=== PATIENT | male | born 1970 | race African-American/Black ===

== ENCOUNTER 2023-04-22 18:17 | Inpatient (IN) | payer OTHER, MEDICAID ==
[~2023-04-22] VITALS: Ht 180.3 cm; Wt 117.5 kg
[2023-04-22 18:55] VITALS: PULSE 80; RESP 16; O2SAT 95
[2023-04-22 19:18] LABS: Basophils # (auto) 0.1 10 ^3/uL (0-0.2); Basophils % (auto) 0.4 % (0.0-2.0); Eosinophils # (auto) 0.1 10 ^3/uL (0-0.8); Eosinophils % (auto) 0.4 % (0.0-7.0); Hematocrit 50.6 % (41.0-53.0); Lymphocytes # (auto) 3.6 10 ^3/uL (0.4-5.4); Lymphocytes % (auto) 24.4 % (10.0-50.0); Mean Corpuscular Hemoglobin 30.4 pg (28.0-32.0); Mean Corpuscular Hgb Conc. 33.6 g/dL (32.0-36.0); Mean Corpuscular Volume 90.6 fL (80.0-100.0); Monocytes # (auto) 1.4 10 ^3/uL (0-1.3); Monocytes % (auto) 9.8 % (0.0-12.0); Neutrophils # (auto) 9.6 10 ^3/uL (1.6-8.6); Nucleated Red Blood Cells % 0.1 %; Red Blood Cells 5.59 10^6/uL (4.5-5.90); Red Cell Distribution Width 15.1 % (11.8-14.3); White Blood Cell 14.7 10^3/uL (4.4-10.8)
[2023-04-22 19:20] LABS: Alanine Aminotransferase 109 U/L (7-40); Albumin 4.7 g/dL (3.2-4.8); Alkaline Phosphatase 109 U/L (46-116); Anion Gap 8 (5-15); Aspartate Aminotransferase 41 U/L (13-40); Blood Urea Nitrogen 16 mg/dL (9-23); Calcium 9.6 mg/dL (8.7-10.4); Carbon Dioxide 26 mmol/L (20-30); Chloride 105 mmol/L (98-107); Glucose 91 mg/dL (74-106); Magnesium 2.2 mg/dL (1.6-2.6); Potassium 3.9 mmol/L (3.5-5.1); Sodium 139 mmol/L (136-145)
[2023-04-22 19:21] LABS: Bilirubin, Total 0.7 mg/dL (0.2-1.0); Total Protein 7.7 g/dL (5.7-8.2)
[2023-04-22 19:30] LABS: INR 1.06 (0.9-1.15); Partial Thromboplastin Time 28.1 SEC (24.5-34.5); Prothrombin Time 11.1 sec (9.3-11.8)
[2023-04-22 19:41] VITALS: PULSE 81; RESP 14; O2SAT 96
[2023-04-22] MEDS ORDERED: NITROGLYCERIN 0.4 MG SL TAB SL ONE (20:00)
[2023-04-22] MEDS ORDERED: DOCUSATE SOD 100 MG CAP PO PRN (21:00)
[2023-04-22] MEDS ORDERED: ACETAMINOPHEN 325 MG TAB PO PRN (21:00)
[2023-04-22] MEDS ORDERED: ALBUTEROL MEDNEB 2.5 mg/3ml NEB NEB PRN (21:00)
[2023-04-22] MEDS: FUROSEMIDE 100 MG/10ML VIAL IV ONE ×2 (21:00→22:31)
[2023-04-22] MEDS ORDERED: ONDANSETRON HCL 4 MG/2 ML VIAL IV PRN (21:00)
[2023-04-22] MEDS ORDERED: HYDROcodone-ACET 5/325MG TAB PO PRN (21:00)
[2023-04-22] MEDS ORDERED: MORPHINE SULFATE INJ 2 MG/ml SYRG IV PRN ×2 (21:00)
[2023-04-22] MEDS ORDERED: NITROGLYCERIN 0.4 MG SL TAB SL PRN (21:00)
[2023-04-22] MEDS ORDERED: cefTRIAXone 1GM/50ML D5W 50 ML IV ONE (21:00)
[2023-04-22] MEDS ORDERED: IPRATROPIUM BROM 0.5 MG/2.5ML INH SOL NEB PRN (21:00)
[2023-04-22 21:32] VITALS: BP 133/88; PULSE 81; RESP 20; O2SAT 97
[2023-04-22 22:20] LABS: Urine Bacteria NONE SEEN /hpf (None Seen); Urine Blood Negative /uL (Negative); Urine Clarity Clear (Clear); Urine Color Colorless (Yellow); Urine Protein, UAD Negative (Negative); Urine Specific Gravity 1.009 (1.001-1.035); Urine Sperm PRESENT /hpf (None Seen); Urine Urobilinogen Normal (Negative); Urine WBC 1 /hpf (0 - 3); Urine pH 5.5 (5.0-8.0)
[2023-04-22] MEDS: CARVEDILOL 3.125 MG TAB PO SCH (22:29)
[2023-04-22 22:30] LABS: Amphetamine Screen, Urine Neg (NEGATIVE)
[2023-04-22] MEDS: ATORVASTATIN 20 MG TAB PO SCH (22:30)
[2023-04-22 22:31] LABS: Barbiturate Scree,Urine Neg (NEGATIVE); Benzodiazephine Screen, Urine Neg (NEGATIVE); Cannabinoid Screen, Urine Pos (NEGATIVE); Cocaine Screen, Urine Neg (NEGATIVE); Opiate Scree,Urine Neg (NEGATIVE); Phencyclidine Screen, Urine Neg (NEGATIVE)
[2023-04-23] VITALS (7 sets, daily range): BP systolic 104–122; BP diastolic 66–82; PULSE 69–87; RESP 18–20; TEMP 97.6–98.9; O2SAT 93–97
[2023-04-23 05:56] LABS: Alanine Aminotransferase 106 U/L (7-40); Alkaline Phosphatase 92 U/L (46-116); Calcium 8.9 mg/dL (8.5-10.1); Carbon Dioxide 26 mmol/L (20-30); Chloride 106 mmol/L (98-107); Glucose 110 mg/dL (74-106); LDL Cholesterol 221 mg/dL (< 100); Potassium 3.6 mmol/L (3.5-5.1); Triglycerides 133 mg/dL (< 150)
[2023-04-23 05:57] LABS: Albumin 4.5 g/dL (3.2-4.8); Anion Gap 8 (5-15); Aspartate Aminotransferase 55 U/L (13-40); BUN/Creatinine Ratio 9.9 (10.0-20.0); Bilirubin, Total 0.8 mg/dL (0.2-1.0); Blood Urea Nitrogen 14 mg/dL (9-23); Cholesterol 266 mg/dL (< 200); HDL Cholesterol 37 mg/dL (40-59); Sodium 140 mmol/L (136-145); Total Protein 7.5 g/dL (5.7-8.2)
[2023-04-23] MEDS ORDERED: FUROSEMIDE 20 MG/2 ML VIAL IV SCH (06:00)
[2023-04-23 06:06] LABS: Basophils # (auto) 0.1 10 ^3/uL (0-0.2); Basophils % (auto) 0.5 % (0.0-2.0); Eosinophils # (auto) 0.1 10 ^3/uL (0-0.8); Eosinophils % (auto) 0.8 % (0.0-7.0); Hematocrit 48.1 % (41.0-53.0); Hemoglobin 16.4 g/dL (13.5-17.5); Lymphocytes # (auto) 1.8 10 ^3/uL (0.4-5.4); Lymphocytes % (auto) 17.8 % (10.0-50.0); Mean Corpuscular Hemoglobin 30.5 pg (28.0-32.0); Mean Corpuscular Hgb Conc. 34.1 g/dL (32.0-36.0); Mean Corpuscular Volume 89.4 fL (80.0-100.0); Monocytes # (auto) 1.1 10 ^3/uL (0-1.3); Monocytes % (auto) 10.5 % (0.0-12.0); Neutrophils # (auto) 7.1 10 ^3/uL (1.6-8.6); Neutrophils % (auto) 70.4 % (37.0-80.0); Nucleated Red Blood Cells % 0.1 %; Red Blood Cells 5.37 10^6/uL (4.5-5.90); Red Cell Distribution Width 14.4 % (11.8-14.3); White Blood Cell 10.1 10^3/uL (4.4-10.8)
[2023-04-23] MEDS ORDERED: METO25TA93 PO (06:19)
[2023-04-23] MEDS ORDERED: AMIO200T33 PO (06:19)
[2023-04-23] MEDS ORDERED: CLOP75TA70 PO (06:19)
[2023-04-23] MEDS ORDERED: ATOR80TA PO (06:21)
[2023-04-23] MEDS ORDERED: ASPI325T4 PO (06:21)
[2023-04-23] MEDS ORDERED: CARV6.2551 PO (06:21)
[2023-04-23] MEDS ORDERED: FURO40TA4 PO (06:21)
[2023-04-23] MEDS ORDERED: METOPROLOL SUCCINATE XL 50 MG TAB PO SCH (10:00)
[2023-04-23] MEDS: cefTRIAXone 1GM/50ML D5W 50 ML IV SCH (10:07)
[2023-04-23] MEDS: ASPirin-EC 81 mg tab PO SCH (10:08)
[2023-04-23] MEDS: AMIODARONE HCL 200 MG TAB PO SCH (10:09)
[2023-04-23] MEDS: CLOPIDOGREL BISULFATE 75 MG TAB PO SCH (10:09)
[2023-04-23] MEDS: CARVEDILOL 3.125 MG TAB PO SCH ×2 (10:15→21:52)
[2023-04-23] MEDS: SPIRONOLACTONE 25 MG TAB PO SCH (10:18)
[2023-04-23] MEDS: SACUBITRIL-VALSARTAN 24mg/26mg TAB PO SCH ×2 (10:18→21:52)
[2023-04-23] MEDS: FUROSEMIDE 20 MG/2 ML VIAL IV SCH (17:26)
[2023-04-23] MEDS: ATORVASTATIN 20 MG TAB PO SCH (21:53)
[2023-04-24 05:00] VITALS: BP 113/75; PULSE 79; RESP 20; TEMP 98; O2SAT 97
[2023-04-24] MEDS: FUROSEMIDE 20 MG/2 ML VIAL IV SCH (06:00)
[2023-04-24 06:35] VITALS: O2SAT 97
[2023-04-24] MEDS ORDERED: EMPAGLIFLOZIN 10 MG TAB PO SCH (07:00)
[2023-04-24 08:00] VITALS: PULSE 77
[2023-04-24 08:21] LABS: Hepatitis B Surface Antigen Negative (Negative)
[2023-04-24 08:35] VITALS: BP 109/70; PULSE 79; RESP 18; TEMP 97.5; O2SAT 95
[2023-04-24 08:42] LABS: Hepatitis C Antibody Negative (Negative)
[2023-04-24] MEDS: SACUBITRIL-VALSARTAN 24mg/26mg TAB PO SCH (09:09)
[2023-04-24] MEDS: ASPirin-EC 81 mg tab PO SCH (09:10)
[2023-04-24] MEDS: CLOPIDOGREL BISULFATE 75 MG TAB PO SCH (09:11)
[2023-04-24] MEDS: AMIODARONE HCL 200 MG TAB PO SCH (09:11)
[2023-04-24] MEDS: CARVEDILOL 3.125 MG TAB PO SCH (09:11)
[2023-04-24] MEDS: SPIRONOLACTONE 25 MG TAB PO SCH (09:11)
[2023-04-24] MEDS: cefTRIAXone 1GM/50ML D5W 50 ML IV SCH (09:12)
[2023-04-24] MEDS ORDERED: ATO40T PO (10:24)
[2023-04-24] MEDS ORDERED: CARV6.25 PO (10:24)
[2023-04-24] MEDS ORDERED: NITR0.4S29 SL (10:24)
[2023-04-24 12:35] VITALS: BP 109/72; PULSE 80; RESP 20; TEMP 97.5; O2SAT 96
[2023-04-24 14:06] VITALS: BP 109/70; PULSE 79; TEMP 36.4
== END 2023-04-24 16:20 | disposition home or self-care (01) | DRG 280 ==
LOC: ER 18:17 → TELE 21:06 → TELE-WESTW 04-23 06:09
PROVIDERS: ADMIT Nurse Practitioner Family; ATTEND Family Medicine
DX: I21.4 Non-ST elevation (NSTEMI) myocardial infarction (principal); I50.43 Acute on chronic combined systolic (congestive) and diastolic (congestive) heart failure; I13.0 Hypertensive heart and chronic kidney disease with heart failure and stage 1 through stage 4 chronic kidney disease, or unspecified chronic kidney disease; N17.9 Acute kidney failure, unspecified; D72.829 Elevated white blood cell count, unspecified; I25.5 Ischemic cardiomyopathy; E78.5 Hyperlipidemia, unspecified; E66.9 Obesity, unspecified; R73.03 Prediabetes; N18.9 Chronic kidney disease, unspecified; F17.210 Nicotine dependence, cigarettes, uncomplicated; I25.10 Atherosclerotic heart disease of native coronary artery without angina pectoris; Z95.1 Presence of aortocoronary bypass graft; Z95.810 Presence of automatic (implantable) cardiac defibrillator; Z82.49 Family history of ischemic heart disease and other diseases of the circulatory system; Z83.3 Family history of diabetes mellitus; Z95.5 Presence of coronary angioplasty implant and graft; Z91.199 Patient's noncompliance with other medical treatment and regimen due to unspecified reason; Z68.36 Body mass index [BMI] 36.0-36.9, adult
CPT/HCPCS: 36415; 71045; 80053; 80061; 80307; 81001; 83036; 83735; 83880; 84443; 84484; 85025; 85610; 85730; 86803; 87040; 87086; 87340; 93005; 93306; 96365; 96375; G0378; J0696

== ENCOUNTER 2023-05-22 10:44 | Inpatient (IN) | payer OTHER, MEDICAID ==
[~2023-05-22] VITALS: Ht 180.3 cm; Wt 111.6 kg
[~2023-05-22 10:44] MED LIST: AMIO200T33 PO; ASPI325T4 PO; ATO40T PO; ATOR80TA PO; CARV6.25 PO; CARV6.2551 PO; CLOP75TA70 PO; FURO40TA4 PO; METO25TA93 PO; NITR0.4S29 SL
[2023-05-22 11:08] LABS: Basophils # (auto) 0.1 10 ^3/uL (0-0.2); Basophils % (auto) 0.7 % (0.0-2.0); Eosinophils # (auto) 0.1 10 ^3/uL (0-0.8); Eosinophils % (auto) 1.1 % (0.0-7.0); Hematocrit 46.1 % (41.0-53.0); Hemoglobin 15.2 g/dL (13.5-17.5); Lymphocytes # (auto) 2.4 10 ^3/uL (0.4-5.4); Lymphocytes % (auto) 23.4 % (10.0-50.0); Mean Corpuscular Hemoglobin 30.3 pg (28.0-32.0); Mean Corpuscular Volume 91.8 fL (80.0-100.0); Monocytes # (auto) 1.2 10 ^3/uL (0-1.3); Neutrophils # (auto) 6.3 10 ^3/uL (1.6-8.6); Neutrophils % (auto) 62.8 % (37.0-80.0); Nucleated Red Blood Cells % 0.1 %; Red Blood Cells 5.02 10^6/uL (4.5-5.90); Red Cell Distribution Width 15.1 % (11.8-14.3); White Blood Cell 10.1 10^3/uL (4.4-10.8)
[2023-05-22] MEDS ORDERED: FUROSEMIDE 100 MG/10ML VIAL IV ONE (11:30)
[2023-05-22 11:33] LABS: Alanine Aminotransferase 74 U/L (7-40); Alkaline Phosphatase 77 U/L (46-116); Anion Gap 7 (5-15); Aspartate Aminotransferase 24 U/L (13-40); BUN/Creatinine Ratio 16.2 (10.0-20.0); Bilirubin, Total 0.9 mg/dL (0.2-1.0); Blood Urea Nitrogen 23 mg/dL (9-23); Calcium 8.3 mg/dL (8.7-10.4); Carbon Dioxide 23 mmol/L (20-30); Chloride 108 mmol/L (98-107); Glucose 119 mg/dL (74-106); Potassium 4.3 mmol/L (3.5-5.1); Sodium 138 mmol/L (136-145); Total Protein 6.3 g/dL (5.7-8.2)
[2023-05-22] MEDS ORDERED: ASPirin 325 MG TAB PO ONE (12:00)
[2023-05-22] MEDS ORDERED: NITROGLYCERIN 0.4 MG SL TAB SL ONE (12:00)
[2023-05-22] MEDS ORDERED: DOCUSATE SOD 100 MG CAP PO PRN (14:30)
[2023-05-22] MEDS ORDERED: ONDANSETRON HCL 4 MG/2 ML VIAL IV PRN (14:30)
[2023-05-22] MEDS ORDERED: NITROGLYCERIN 0.4 MG SL TAB SL PRN (14:30)
[2023-05-22] MEDS ORDERED: ACETAMINOPHEN 325 MG TAB PO PRN (14:30)
[2023-05-22] MEDS ORDERED: HYDROcodone-ACET 5/325MG TAB PO PRN (14:30)
[2023-05-22] MEDS ORDERED: MORPHINE SULFATE INJ 2 MG/ml SYRG IV PRN (14:30)
[2023-05-22] MEDS ORDERED: ATORVASTATIN 20 MG TAB ONE ×2 (19:32→19:33)
[2023-05-22] MEDS: ATORVASTATIN 20 MG TAB PO SCH (19:34)
[2023-05-23] VITALS (7 sets, daily range): BP systolic 100–118; BP diastolic 65–80; PULSE 65–86; RESP 16–28; TEMP 97.6–100; O2SAT 91–97
[2023-05-23] MEDS: CARVEDILOL 3.125 MG TAB PO SCH ×3 (02:11→23:19)
[2023-05-23 06:34] LABS: Basophils # (auto) 0.1 10 ^3/uL (0-0.2); Basophils % (auto) 0.7 % (0.0-2.0); Eosinophils # (auto) 0.1 10 ^3/uL (0-0.8); Eosinophils % (auto) 1.1 % (0.0-7.0); Hematocrit 44.1 % (41.0-53.0); Hemoglobin 14.5 g/dL (13.5-17.5); Lymphocytes # (auto) 1.1 10 ^3/uL (0.4-5.4); Lymphocytes % (auto) 11.6 % (10.0-50.0); Mean Corpuscular Volume 90.9 fL (80.0-100.0); Monocytes # (auto) 1.2 10 ^3/uL (0-1.3); Monocytes % (auto) 12.7 % (0.0-12.0); Neutrophils # (auto) 6.7 10 ^3/uL (1.6-8.6); Neutrophils % (auto) 73.9 % (37.0-80.0); Nucleated Red Blood Cells % 0.2 %; Red Blood Cells 4.84 10^6/uL (4.5-5.90); White Blood Cell 9.1 10^3/uL (4.4-10.8)
[2023-05-23 06:47] LABS: Alanine Aminotransferase 61 U/L (7-40); Albumin 3.7 g/dL (3.2-4.8); Alkaline Phosphatase 70 U/L (46-116); Anion Gap 7 (5-15); Aspartate Aminotransferase 24 U/L (13-40); BUN/Creatinine Ratio 10.4 (10.0-20.0); Blood Urea Nitrogen 14 mg/dL (9-23); Calcium 8.5 mg/dL (8.5-10.1); Carbon Dioxide 26 mmol/L (20-30); Chloride 107 mmol/L (98-107); Glucose 101 mg/dL (74-106); Potassium 3.7 mmol/L (3.5-5.1); Sodium 140 mmol/L (136-145)
[2023-05-23 06:48] LABS: Total Protein 6.1 g/dL (5.7-8.2)
[2023-05-23] MEDS ORDERED: FURO80TA3 PO ×2 (10:55→10:56)
[2023-05-23] MEDS ORDERED: SPIR25TA8 PO (10:55)
[2023-05-23] MEDS ORDERED: ASPI-543 PO (10:55)
[2023-05-23] MEDS: METOPROLOL SUCCINATE XL 50 MG TAB PO SCH (11:56)
[2023-05-23] MEDS: AMIODARONE HCL 200 MG TAB PO SCH (11:57)
[2023-05-23] MEDS: CLOPIDOGREL BISULFATE 75 MG TAB PO SCH (11:57)
[2023-05-23] MEDS: ASPirin 81 mg TAB PO SCH (11:58)
[2023-05-23] MEDS: FUROSEMIDE 40 MG/4 ML VIAL IV SCH (12:02)
[2023-05-23] MEDS ORDERED: ENOXAPARIN SOD 40 MG/0.4 ML SYRINGE SC ONE ×2 (14:45→17:53)
[2023-05-23] MEDS ORDERED: POLYETHYLENE GLYCOL 17 GM PWDR PO ONE (14:45)
[2023-05-23] MEDS ORDERED: metOLazone 5 MG TAB PO ONE (15:15)
[2023-05-23] MEDS ORDERED: POLYETHYLENE GLYCOL 17 GM PWDR ONE (17:48)
[2023-05-23] MEDS: ATORVASTATIN 20 MG TAB PO SCH (18:09)
[2023-05-23] MEDS ORDERED: PIPERACILLIN-TAZOB 3.375GM 100 ML IV ONE (22:59)
[2023-05-23] MEDS ORDERED: RANOLAZINE ER 500 MG TAB PO ONE (23:11)
[2023-05-23] MEDS: RANOLAZINE ER 500 MG TAB PO SCH (23:21)
[2023-05-23] MEDS: PIPERACILLIN-TAZOB 3.375GM 100 ML IV SCH (23:22)
[2023-05-24] VITALS (7 sets, daily range): BP systolic 100–111; BP diastolic 52–71; PULSE 57–81; RESP 17–20; TEMP 37; O2SAT 90–98
[2023-05-24] MEDS: CARVEDILOL 3.125 MG TAB PO SCH (00:19)
[2023-05-24 05:29] LABS: Urine Bacteria FEW /hpf (None Seen); Urine Blood Negative /uL (Negative); Urine Clarity Clear (Clear); Urine Color Yellow (Yellow); Urine Protein, UAD TRACE (Negative); Urine Specific Gravity 1.015 (1.001-1.035); Urine Sperm PRESENT /hpf (None Seen); Urine Urobilinogen Normal (Negative); Urine WBC 1 /hpf (0 - 3)
[2023-05-24 05:34] LABS: Respiratory Syncytial Virus Ag Negative
[2023-05-24 05:35] LABS: COVID19 ANTIGEN SOFIA FIA NEGATIVE (NEGATIVE)
[2023-05-24 05:36] LABS: Rapid Influenza A Negative (Negative); Rapid Influenza B Negative (Negative)
[2023-05-24 05:39] LABS: Amphetamine Screen, Urine Neg (NEGATIVE)
[2023-05-24 05:40] LABS: Barbiturate Scree,Urine Neg (NEGATIVE); Benzodiazephine Screen, Urine Neg (NEGATIVE); Cannabinoid Screen, Urine Pos (NEGATIVE); Cocaine Screen, Urine Neg (NEGATIVE); Opiate Scree,Urine Neg (NEGATIVE); Phencyclidine Screen, Urine Neg (NEGATIVE)
[2023-05-24] MEDS ORDERED: PIPERACILLIN-TAZOB 3.375GM 100 ML IV ONE (06:13)
[2023-05-24] MEDS ORDERED: EMPAGLIFLOZIN 10 MG TAB ONE (06:14)
[2023-05-24] MEDS: PIPERACILLIN-TAZOB 3.375GM 100 ML IV SCH ×2 (06:20→14:00)
[2023-05-24] MEDS ORDERED: EMPAGLIFLOZIN 10 MG TAB PO SCH (07:00)
[2023-05-24 07:08] LABS: Basophils # (auto) 0 10 ^3/uL (0-0.2); Basophils % (auto) 0.3 % (0.0-2.0); Eosinophils # (auto) 0 10 ^3/uL (0-0.8); Eosinophils % (auto) 0.1 % (0.0-7.0); Hematocrit 45.2 % (41.0-53.0); Lymphocytes # (auto) 0.6 10 ^3/uL (0.4-5.4); Lymphocytes % (auto) 7.2 % (10.0-50.0); Mean Corpuscular Hemoglobin 30.3 pg (28.0-32.0); Mean Corpuscular Hgb Conc. 33.3 g/dL (32.0-36.0); Mean Corpuscular Volume 90.9 fL (80.0-100.0); Monocytes # (auto) 1.2 10 ^3/uL (0-1.3); Monocytes % (auto) 14.4 % (0.0-12.0); Neutrophils # (auto) 6.6 10 ^3/uL (1.6-8.6); Nucleated Red Blood Cells % 0.2 %; Red Blood Cells 4.97 10^6/uL (4.5-5.90); Red Cell Distribution Width 14.8 % (11.8-14.3); White Blood Cell 8.4 10^3/uL (4.4-10.8)
[2023-05-24 07:10] LABS: Alanine Aminotransferase 56 U/L (7-40); Albumin 4.1 g/dL (3.2-4.8); Alkaline Phosphatase 74 U/L (46-116); Anion Gap 7 (5-15); Aspartate Aminotransferase 25 U/L (13-40); BUN/Creatinine Ratio 7.4 (10.0-20.0); Blood Urea Nitrogen 11 mg/dL (9-23); Calcium 8.7 mg/dL (8.7-10.4); Carbon Dioxide 26 mmol/L (20-30); Chloride 100 mmol/L (98-107); Glucose 108 mg/dL (74-106); Magnesium 2.2 mg/dL (1.6-2.6); Potassium 3.6 mmol/L (3.5-5.1)
[2023-05-24 07:11] LABS: Bilirubin, Total 1.8 mg/dL (0.2-1.0); Total Protein 6.9 g/dL (5.7-8.2)
[2023-05-24 07:12] LABS: Sodium 133 mmol/L (136-145)
[2023-05-24 07:16] LABS: INR 1.27 (0.9-1.15); Prothrombin Time 13.1 sec (9.3-11.8)
[2023-05-24 07:50] LABS: CRP High Sensitivity 1.14 mg/dL (<1.0)
[2023-05-24] MEDS: RANOLAZINE ER 500 MG TAB PO SCH (10:00)
[2023-05-24] MEDS ORDERED: ENOXAPARIN SOD 40 MG/0.4 ML SYRINGE SC SCH (10:00)
[2023-05-24] MEDS ORDERED: ENOXAPARIN SOD 40 MG/0.4 ML SYRINGE SC ONE (11:19)
[2023-05-24] MEDS: FUROSEMIDE 40 MG/4 ML VIAL IV SCH (11:21)
[2023-05-24] MEDS: AMIODARONE HCL 200 MG TAB PO SCH (11:23)
[2023-05-24] MEDS: ASPirin 81 mg TAB PO SCH (11:23)
[2023-05-24] MEDS: CLOPIDOGREL BISULFATE 75 MG TAB PO SCH (11:23)
[2023-05-24] MEDS: METOPROLOL SUCCINATE XL 50 MG TAB PO SCH (11:24)
[2023-05-24] MEDS ORDERED: RANOLAZINE ER 500 MG TAB PO ONE (11:31)
[2023-05-24] MEDS ORDERED: EMPA1TAB PO ×2 (12:09)
[2023-05-24] MEDS ORDERED: LEVO750T8 PO (12:09)
[2023-05-24] MEDS ORDERED: AZITHROMYCIN 500MG/ 250ML 250 ML IV ONE (18:25)
[2023-05-24] MEDS: ATORVASTATIN 20 MG TAB PO SCH (18:34)
== END 2023-05-24 19:29 | disposition home or self-care (01) | DRG 177 ==
LOC: ER 10:44 → TELE 14:31 → TELE-WESTW 05-23 09:13
PROVIDERS: ADMIT Internal Medicine Pulmonary Disease; ATTEND Internal Medicine Pulmonary Disease
DX: J15.69 Pneumonia due to other Gram-negative bacteria (principal); I21.A1 Myocardial infarction type 2; I50.43 Acute on chronic combined systolic (congestive) and diastolic (congestive) heart failure; I13.0 Hypertensive heart and chronic kidney disease with heart failure and stage 1 through stage 4 chronic kidney disease, or unspecified chronic kidney disease; N17.9 Acute kidney failure, unspecified; J91.8 Pleural effusion in other conditions classified elsewhere; J15.9 Unspecified bacterial pneumonia; I25.10 Atherosclerotic heart disease of native coronary artery without angina pectoris; E78.5 Hyperlipidemia, unspecified; K59.00 Constipation, unspecified; Z20.822 Contact with and (suspected) exposure to COVID-19; E66.9 Obesity, unspecified; N18.9 Chronic kidney disease, unspecified; K76.0 Fatty (change of) liver, not elsewhere classified; K57.30 Diverticulosis of large intestine without perforation or abscess without bleeding; F32.A Depression, unspecified; F17.210 Nicotine dependence, cigarettes, uncomplicated; I25.5 Ischemic cardiomyopathy; I50.84 End stage heart failure; R73.03 Prediabetes; Z82.49 Family history of ischemic heart disease and other diseases of the circulatory system; Z68.34 Body mass index [BMI] 34.0-34.9, adult; I25.2 Old myocardial infarction; Z83.3 Family history of diabetes mellitus; Z95.1 Presence of aortocoronary bypass graft; Z95.810 Presence of automatic (implantable) cardiac defibrillator; Z98.61 Coronary angioplasty status; Z71.3 Dietary counseling and surveillance
CPT/HCPCS: 36415; 71046; 71250; 74176; 76705; 80053; 80307; 81001; 83605; 83690; 83735; 83880; 84443; 84484; 85025; 85610; 86141; 87081; 87426; 87804; 87807; 93005; 99291; G0378; J2543

== ENCOUNTER 2023-06-25 13:31 | Inpatient (IN) | payer OTHER, MEDICAID ==
[~2023-06-25] VITALS: Ht 180.3 cm; Wt 111.1 kg
[~2023-06-25 13:31] MED LIST changes: +ASPI-543 PO; -ASPI325T4 PO; -CARV6.2551 PO; +EMPA1TAB PO; -FURO40TA4 PO; +FURO80TA3 PO; +LEVO750T8 PO; +SPIR25TA8 PO
[2023-06-25 14:49] LABS: Basophils # (auto) 0.1 10 ^3/uL (0-0.2); Basophils % (auto) 0.6 % (0.0-2.0); Eosinophils # (auto) 0.1 10 ^3/uL (0-0.8); Eosinophils % (auto) 0.7 % (0.0-7.0); Hematocrit 45.9 % (41.0-53.0); Lymphocytes # (auto) 1.9 10 ^3/uL (0.4-5.4); Mean Corpuscular Hemoglobin 29.6 pg (28.0-32.0); Mean Corpuscular Hgb Conc. 32.7 g/dL (32.0-36.0); Mean Corpuscular Volume 90.5 fL (80.0-100.0); Monocytes # (auto) 1.1 10 ^3/uL (0-1.3); Monocytes % (auto) 9.2 % (0.0-12.0); Neutrophils # (auto) 8.7 10 ^3/uL (1.6-8.6); Neutrophils % (auto) 73.5 % (37.0-80.0); Nucleated Red Blood Cells % 0.1 %; Red Blood Cells 5.07 10^6/uL (4.5-5.90); Red Cell Distribution Width 15.5 % (11.8-14.3); White Blood Cell 11.9 10^3/uL (4.4-10.8)
[2023-06-25 15:01] LABS: INR 1.26 (0.9-1.15); Partial Thromboplastin Time 25.7 SEC (24.5-34.5)
[2023-06-25 15:06] LABS: Alanine Aminotransferase 50 U/L (7-40); Albumin 3.9 g/dL (3.2-4.8); Alkaline Phosphatase 93 U/L (46-116); Anion Gap 10 (5-15); Aspartate Aminotransferase 29 U/L (13-40); BUN/Creatinine Ratio 17.2 (10.0-20.0); Blood Urea Nitrogen 26 mg/dL (9-23); Calcium 8.9 mg/dL (8.7-10.4); Carbon Dioxide 23 mmol/L (20-30); Chloride 103 mmol/L (98-107); Glucose 128 mg/dL (74-106); Lipase 36 U/L (12-53); Magnesium 2.2 mg/dL (1.6-2.6); Potassium 4.4 mmol/L (3.5-5.1); Sodium 136 mmol/L (136-145)
[2023-06-25 15:07] LABS: Bilirubin, Total 1.8 mg/dL (0.2-1.0); Total Protein 6.3 g/dL (5.7-8.2)
[2023-06-25] MEDS ORDERED: ASPirin 325 MG TAB PO ONE (15:30)
[2023-06-25] MEDS ORDERED: FUROSEMIDE 100 MG/10ML VIAL IV ONE (15:30)
[2023-06-25 17:16] VITALS: O2SAT 98
[2023-06-25 18:30] LABS: Amphetamine Screen, Urine Neg (NEGATIVE); Urine Bacteria NONE SEEN /hpf (None Seen); Urine Blood Negative /uL (Negative); Urine Clarity Clear (Clear); Urine Color Yellow (Yellow); Urine Protein, UAD Negative (Negative); Urine Specific Gravity 1.011 (1.001-1.035); Urine Urobilinogen Normal (Negative); Urine WBC <1 /hpf (0 - 3)
[2023-06-25 18:31] LABS: Barbiturate Scree,Urine Neg (NEGATIVE); Benzodiazephine Screen, Urine Neg (NEGATIVE); Cannabinoid Screen, Urine Pos (NEGATIVE); Cocaine Screen, Urine Neg (NEGATIVE); Opiate Scree,Urine Neg (NEGATIVE); Phencyclidine Screen, Urine Neg (NEGATIVE)
[2023-06-25] MEDS ORDERED: PIPERACILLIN-TAZOB 3.375GM 100 ML IV ONE (18:45)
[2023-06-25] MEDS: ENOXAPARIN SOD 120 MG/0.8 ML SYRINGE SC SCH (18:50)
[2023-06-25 19:54] VITALS: PULSE 72; RESP 15; O2SAT 96
[2023-06-25] MEDS ORDERED: FUROSEMIDE 20 MG/2 ML VIAL IV SCH (22:00)
[2023-06-25] MEDS: CARVEDILOL 3.125 MG TAB PO SCH (22:00)
[2023-06-26] MEDS: PIPERACILLIN-TAZOB 3.375GM 100 ML IV SCH ×3 (04:37→20:23)
[2023-06-26 05:48] LABS: Alanine Aminotransferase 49 U/L (7-40); Albumin 3.6 g/dL (3.2-4.8); Alkaline Phosphatase 80 U/L (46-116); Anion Gap 11 (5-15); Aspartate Aminotransferase 28 U/L (13-40); BUN/Creatinine Ratio 12.8 (10.0-20.0); Blood Urea Nitrogen 18 mg/dL (9-23); Calcium 8.5 mg/dL (8.7-10.4); Carbon Dioxide 23 mmol/L (20-30); Chloride 103 mmol/L (98-107); Glucose 105 mg/dL (74-106); Potassium 3.5 mmol/L (3.5-5.1); Sodium 137 mmol/L (136-145)
[2023-06-26 05:49] LABS: Bilirubin, Total 1.7 mg/dL (0.2-1.0)
[2023-06-26 06:00] LABS: Basophils # (auto) 0 10 ^3/uL (0-0.2); Basophils % (auto) 0.5 % (0.0-2.0); Eosinophils # (auto) 0.1 10 ^3/uL (0-0.8); Hematocrit 43.2 % (41.0-53.0); Hemoglobin 14.3 g/dL (13.5-17.5); Lymphocytes # (auto) 1.6 10 ^3/uL (0.4-5.4); Lymphocytes % (auto) 17.2 % (10.0-50.0); Mean Corpuscular Hemoglobin 29.9 pg (28.0-32.0); Mean Corpuscular Hgb Conc. 33.1 g/dL (32.0-36.0); Mean Corpuscular Volume 90.5 fL (80.0-100.0); Monocytes # (auto) 0.9 10 ^3/uL (0-1.3); Monocytes % (auto) 9.4 % (0.0-12.0); Neutrophils # (auto) 6.5 10 ^3/uL (1.6-8.6); Neutrophils % (auto) 71.9 % (37.0-80.0); Nucleated Red Blood Cells % 0.3 %; Red Blood Cells 4.78 10^6/uL (4.5-5.90); Red Cell Distribution Width 15.5 % (11.8-14.3); White Blood Cell 9.1 10^3/uL (4.4-10.8)
[2023-06-26] MEDS: FUROSEMIDE 100 MG/10ML VIAL IV SCH ×2 (06:00→18:37)
[2023-06-26] MEDS: ENOXAPARIN SOD 120 MG/0.8 ML SYRINGE SC SCH ×2 (06:33→18:38)
[2023-06-26 07:52] VITALS: PULSE 66; RESP 22; O2SAT 95
[2023-06-26] MEDS: CARVEDILOL 3.125 MG TAB PO SCH ×2 (10:00→21:39)
[2023-06-26] MEDS ORDERED: METOPROLOL SUCCINATE XL 50 MG TAB PO SCH (10:00)
[2023-06-26] MEDS: SPIRONOLACTONE 25 MG TAB PO SCH (10:20)
[2023-06-26] MEDS: CLOPIDOGREL BISULFATE 75 MG TAB PO SCH (10:20)
[2023-06-26] MEDS: ASPirin-EC 81 mg tab PO SCH (10:20)
[2023-06-26] MEDS: AMIODARONE HCL 200 MG TAB PO SCH (10:21)
[2023-06-26 16:21] VITALS: RESP 18
[2023-06-26 20:00] VITALS: PULSE 75; PULSE 76; RESP 18; O2SAT 93
[2023-06-26 22:00] VITALS: BP 94/71; PULSE 74; RESP 18; TEMP 98.2; O2SAT 94
[2023-06-26] MEDS ORDERED: ATORVASTATIN 20 MG TAB PO SCH (22:00)
[2023-06-27] MEDS: PIPERACILLIN-TAZOB 3.375GM 100 ML IV SCH ×2 (03:30→12:00)
[2023-06-27 05:00] VITALS: BP 103/70; PULSE 72; RESP 18; TEMP 97.4; O2SAT 96
[2023-06-27] MEDS: FUROSEMIDE 100 MG/10ML VIAL IV SCH (05:39)
[2023-06-27] MEDS: ENOXAPARIN SOD 120 MG/0.8 ML SYRINGE SC SCH ×2 (05:46→06:14)
[2023-06-27] MEDS ORDERED: HYDROcodone-ACET 5/325MG TAB PO ONE (06:30)
[2023-06-27 06:47] LABS: Basophils # (auto) 0 10 ^3/uL (0-0.2); Basophils % (auto) 0.4 % (0.0-2.0); Eosinophils # (auto) 0.1 10 ^3/uL (0-0.8); Hemoglobin 14.7 g/dL (13.5-17.5); Lymphocytes # (auto) 1.3 10 ^3/uL (0.4-5.4); Lymphocytes % (auto) 12.5 % (10.0-50.0); Mean Corpuscular Hemoglobin 30.1 pg (28.0-32.0); Mean Corpuscular Hgb Conc. 33.5 g/dL (32.0-36.0); Mean Corpuscular Volume 89.9 fL (80.0-100.0); Monocytes # (auto) 1.1 10 ^3/uL (0-1.3); Monocytes % (auto) 10.4 % (0.0-12.0); Neutrophils # (auto) 7.8 10 ^3/uL (1.6-8.6); Neutrophils % (auto) 75.7 % (37.0-80.0); Nucleated Red Blood Cells % 0.1 %; Red Cell Distribution Width 15.3 % (11.8-14.3); White Blood Cell 10.2 10^3/uL (4.4-10.8)
[2023-06-27 07:03] LABS: Alanine Aminotransferase 47 U/L (7-40); Albumin 3.7 g/dL (3.2-4.8); Alkaline Phosphatase 93 U/L (46-116); Anion Gap 9 (5-15); Aspartate Aminotransferase 28 U/L (13-40); BUN/Creatinine Ratio 11.7 (10.0-20.0); Bilirubin, Total 1.9 mg/dL (0.2-1.0); Blood Urea Nitrogen 19 mg/dL (9-23); Calcium 8.4 mg/dL (8.5-10.1); Carbon Dioxide 27 mmol/L (20-30); Chloride 101 mmol/L (98-107); Glucose 121 mg/dL (74-106); Potassium 3.3 mmol/L (3.5-5.1); Sodium 137 mmol/L (136-145); Total Protein 6.1 g/dL (5.7-8.2)
[2023-06-27 07:30] VITALS: PULSE 74; O2SAT 93
[2023-06-27] MEDS ORDERED: POTASSIUM CHLORIDE 40 MEQ, LIDOCAINE 1% (LOCAL ANESTH.) 4 ML in SODIUM CHL 0.9% 250 ML IV ONE (08:15)
[2023-06-27] MEDS: SPIRONOLACTONE 25 MG TAB PO SCH (09:23)
[2023-06-27] MEDS: CLOPIDOGREL BISULFATE 75 MG TAB PO SCH (09:23)
[2023-06-27] MEDS: ASPirin-EC 81 mg tab PO SCH (09:23)
[2023-06-27] MEDS: CARVEDILOL 3.125 MG TAB PO SCH (09:23)
[2023-06-27] MEDS: AMIODARONE HCL 200 MG TAB PO SCH (09:23)
[2023-06-27 09:26] VITALS: BP 107/78; PULSE 78; RESP 20; TEMP 97.7; O2SAT 99
[2023-06-27] MEDS ORDERED: NITROGLYCERIN 0.4 MG SL TAB SL PRN (09:30)
[2023-06-27] MEDS ORDERED: FURO1TAB31 PO (11:36)
[2023-06-27 13:00] VITALS: BP 97/68; PULSE 75; RESP 20; TEMP 97.6; O2SAT 92
[2023-06-27 15:05] VITALS: BP 129/75; PULSE 99; TEMP 36.4
== END 2023-06-27 17:30 | disposition home or self-care (01) | DRG 291 ==
LOC: ER 13:31 → TELE-WESTW 17:30 → TELE 17:30 → TELE-WESTW 06-26 16:49
PROVIDERS: ADMIT Internal Medicine Geriatric Medicine; ATTEND Internal Medicine Geriatric Medicine
DX: I13.0 Hypertensive heart and chronic kidney disease with heart failure and stage 1 through stage 4 chronic kidney disease, or unspecified chronic kidney disease (principal); I50.23 Acute on chronic systolic (congestive) heart failure; J96.01 Acute respiratory failure with hypoxia; N17.9 Acute kidney failure, unspecified; K76.0 Fatty (change of) liver, not elsewhere classified; K57.30 Diverticulosis of large intestine without perforation or abscess without bleeding; I25.5 Ischemic cardiomyopathy; N18.2 Chronic kidney disease, stage 2 (mild); R73.03 Prediabetes; I25.10 Atherosclerotic heart disease of native coronary artery without angina pectoris; F17.210 Nicotine dependence, cigarettes, uncomplicated; D72.829 Elevated white blood cell count, unspecified; E78.2 Mixed hyperlipidemia; Z95.1 Presence of aortocoronary bypass graft; I25.2 Old myocardial infarction; Z95.810 Presence of automatic (implantable) cardiac defibrillator
CPT/HCPCS: 36415; 71045; 74176; 76705; 78226; 78582; 80053; 80307; 81001; 83605; 83690; 83735; 83880; 84484; 85025; 85379; 85610; 85730; 87040; 93005; 93970; 96374; 99291; G0378; J2001; J2543

== ENCOUNTER 2023-06-30 15:34 | Emergency (ER) | payer OTHER, MEDICAID ==
[~2023-06-30] VITALS: Ht 188 cm; Wt 118.0 kg
[2023-06-30 15:34] VITALS: BP 0/0
[~2023-06-30 15:34] MED LIST changes: -ATO40T PO; -CARV6.25 PO; +FURO1TAB31 PO; -LEVO750T8 PO
[2023-06-30] MEDS ORDERED: LIDOCAINE W/ EPINEPHRINE 2% INJ 20ML VIAL ONE (15:38)
[2023-06-30] MEDS ORDERED: LIDOCAINE 2%HCL (LOCAL ANESTH.) INJ 10ml MDV ONE (15:39)
[2023-06-30] MEDS ORDERED: SODIUM BICARBONATE 8.4% INJ 50ML SYRINGE ONE (15:48)
[2023-06-30 15:56] VITALS: PULSE 0
[2023-06-30] MEDS ORDERED: SUCCINYLCHOLINE CHLORIDE 20 MG/ML 10ML VIAL IV ONE ×2 (16:15)
[2023-06-30] MEDS ORDERED: ETOMIDATE (2MG/ML) 20ML VIAL IV ONE (16:15)
[2023-06-30] MEDS ORDERED: SODIUM BICARBONATE 8.4 % INJ 50ML VIAL IV ONE (16:15)
== END 2023-06-30 16:58 | disposition home or self-care (01) ==
LOC: EDBD 15:34 → ER 15:34
DX: I46.9 Cardiac arrest, cause unspecified (principal); I11.0 Hypertensive heart disease with heart failure; I50.9 Heart failure, unspecified; I25.2 Old myocardial infarction; E78.5 Hyperlipidemia, unspecified; F32.9 Major depressive disorder, single episode, unspecified; I25.10 Atherosclerotic heart disease of native coronary artery without angina pectoris; F17.210 Nicotine dependence, cigarettes, uncomplicated; F15.90 Other stimulant use, unspecified, uncomplicated; Z98.890 Other specified postprocedural states; Z79.899 Other long term (current) drug therapy
CPT/HCPCS: 31500; 92950; 99285; J2001